=== PATIENT | female | born 1975 | race Hispanic/Latino ===

== ENCOUNTER → 2022-07-04 | Emergency (ER) | payer SELFPAY ==
[~2022-07-04] VITALS: Ht 167.6 cm; Wt 62.6 kg
[~2022-07-04] MED LIST: ASPIRIN 81 MG CHEW TAB PO ONE; BUPIVACAINE 0.25% 30ML SDV ONE; DICYCLOMINE HCL20 MG PO; Morphine 4mg INJECTION 4 MG/ML INJ IV ONE; ONDANSETRON HCL INJ 2MG/ML 2ML 2 MG/ML VIAL IV STA; ONDANSETRON ODT4 MG PO; PANTOPRAZOLE SO40 MG PO; SODIUM CHLORIDE 0.9% 1000ML 1,000 ML IV ONE; SUGAMMADEX SODIUM 200 MG/2 ML VIAL IV ONE
[2022-07-04 18:54] LABS: BASOPHILS # (AUTO) 0.1 (0.0-0.1); BASOPHILS % 0.5 % (0.0-1.0); EOSINOPHILS # (AUTO) 0.2 (0.0-0.4); EOSINOPHILS % 1.2 % (0.0-6.0); HEMOGLOBIN 13.4 g/dL (12.0-16.0); LYMPHOCYTES # (AUTO) 3.2 (1.0-3.2); LYMPHOCYTES % 19.3 % (18.0-39.1); MEAN CORPUSCULAR HEMOGLOBIN 29.1 pg (28-32); MEAN CORPUSCULAR HGB CONC 33.5 g/dL (31-35); MEAN CORPUSCULAR VOLUME 86.8 fL (81-99); MONOCYTES # (AUTO) 1.1 (0.2-0.8); MONOCYTES % 6.6 % (4.4-11.3); NEUTROPHILS # (AUTO) 11.8 (2.1-6.9); NEUTROPHILS % 71.9 % (38.7-80.0); PLATELET COUNT 373 x10e3/uL (140-360); RED BLOOD COUNT 4.61 x10e6/uL (3.6-5.1); RED CELL DISTRIBUTION WIDTH 12.7 % (11.7-14.4)
[2022-07-04 19:14] LABS: ALANINE AMINOTRANSFERASE 18 IU/L (0-55); ALBUMIN 4.1 g/dL (3.5-5.0); ALKALINE PHOSPHATASE 106 IU/L (40-150); ANION GAP 16.5 mmol/L (8-16); BLOOD UREA NITROGEN 10 mg/dL (7-26); BUN/CREATININE RATIO 15 (6-25); CALCIUM 9.6 mg/dL (8.4-10.2); CARBON DIOXIDE 24 mmol/L (22-29); CHLORIDE 103 mmol/L (98-107); CREATINE KINASE 44 IU/L (29-168); CREATININE, SERUM 0.67 mg/dL (0.57-1.11); GLUCOSE 103 mg/dL (74-118); POTASSIUM 3.5 mmol/L (3.5-5.1); SODIUM 140 mmol/L (136-145)
[2022-07-04 21:15] VITALS: O2SAT 99
== END | disposition home or self-care (01) ==
LOC: ER 17:47
DX: R50.9 Fever, unspecified (principal); K80.20 Calculus of gallbladder without cholecystitis without obstruction; R10.10 Upper abdominal pain, unspecified; K76.0 Fatty (change of) liver, not elsewhere classified; R94.31 Abnormal electrocardiogram [ECG] [EKG]
CPT/HCPCS: 36415; 76705; 80053; 82550; 82553; 83605; 83690; 84484; 85025; 87040; 93005; 99282; C9113; J2270; J2405; J7030

== ENCOUNTER 2022-07-06 01:19 | Inpatient (IN) | payer SELFPAY ==
[~2022-07-06] VITALS: Ht 167.6 cm; Wt 62.6 kg
[~2022-07-06 01:19] MED LIST changes: -ASPIRIN 81 MG CHEW TAB PO ONE; -BUPIVACAINE 0.25% 30ML SDV ONE; -Morphine 4mg INJECTION 4 MG/ML INJ IV ONE; -ONDANSETRON HCL INJ 2MG/ML 2ML 2 MG/ML VIAL IV STA; -SODIUM CHLORIDE 0.9% 1000ML 1,000 ML IV ONE; -SUGAMMADEX SODIUM 200 MG/2 ML VIAL IV ONE
[2022-07-06 02:38] LABS: BASOPHILS # (AUTO) 0.1 (0.0-0.1); BASOPHILS % 0.4 % (0.0-1.0); EOSINOPHILS # (AUTO) 0.2 (0.0-0.4); EOSINOPHILS % 1.1 % (0.0-6.0); HEMATOCRIT 38.8 % (34.2-44.1); LYMPHOCYTES # (AUTO) 2.5 (1.0-3.2); LYMPHOCYTES % 16.8 % (18.0-39.1); MEAN CORPUSCULAR HGB CONC 33.5 g/dL (31-35); MEAN CORPUSCULAR VOLUME 86.6 fL (81-99); NEUTROPHILS # (AUTO) 10.9 (2.1-6.9); NEUTROPHILS % 73.9 % (38.7-80.0); PLATELET COUNT 369 x10e3/uL (140-360); RED BLOOD COUNT 4.48 x10e6/uL (3.6-5.1); RED CELL DISTRIBUTION WIDTH 12.7 % (11.7-14.4)
[2022-07-06] MEDS ORDERED: KETOROLAC TROMETHAMINE 30 MG/ML VIAL IV STA (02:38)
[2022-07-06] MEDS ORDERED: ONDANSETRON HCL INJ 2MG/ML 2ML 2 MG/ML VIAL IV STA (02:38)
[2022-07-06] MEDS ORDERED: DICYCLOMINE HCL 20 MG/2 ML VIAL IM ONE (02:45)
[2022-07-06 02:56] LABS: ALBUMIN 3.8 g/dL (3.5-5.0); ANION GAP 12.5 mmol/L (8-16); CALCIUM 9.7 mg/dL (8.4-10.2); CREATININE, SERUM 0.69 mg/dL (0.57-1.11); POTASSIUM 3.5 mmol/L (3.5-5.1)
[2022-07-06] MEDS: SODIUM CHLORIDE 0.9% 1000ML 1,000 ML IV SCH ×3 (03:51→20:20)
[2022-07-06 08:01] VITALS: BP 131/73; PULSE 62; RESP 17; TEMP 98.8; O2SAT 98
[2022-07-06 08:29] VITALS: BP 131/73; PULSE 62; RESP 17; TEMP 98; O2SAT 99
[2022-07-06] MEDS: ONDANSETRON HCL INJ 2MG/ML 2ML 2 MG/ML VIAL IV PRN ×3 (10:40→20:20)
[2022-07-06] MEDS: Morphine 4mg INJECTION 4 MG/ML INJ IV PRN ×2 (10:40→15:22)
[2022-07-06 13:05] VITALS: BP 116/68; PULSE 63; RESP 18; TEMP 98; O2SAT 96
[2022-07-06 16:42] VITALS: BP 119/72; PULSE 66; RESP 17; TEMP 97.7; O2SAT 99
[2022-07-06 20:03] VITALS: BP 118/64; PULSE 64; RESP 18; TEMP 97.9; O2SAT 97
[2022-07-06 20:10] VITALS: BP 118/64; PULSE 64; RESP 17; TEMP 97.9; O2SAT 99
[2022-07-06] MEDS ORDERED: METRONIDAZOLE 750MG/NS 150ML 150 ML IV STA (23:28)
[2022-07-06] MEDS ORDERED: LEVOFLOXACIN 500MG/D5W 100ML 100 ML IV ONE (23:45)
[2022-07-07] VITALS (7 sets, daily range): BP systolic 111–139; BP diastolic 65–80; PULSE 70–83; RESP 14–18; TEMP 98.2–99; O2SAT 96–100
[2022-07-07] MEDS ORDERED: METRONIDAZOLE 500MG/NS 100ML 150 ML IV ONE
[2022-07-07 04:52] LABS: BASOPHILS # (AUTO) 0.1 (0.0-0.1); BASOPHILS % 0.7 % (0.0-1.0); EOSINOPHILS # (AUTO) 0.2 (0.0-0.4); EOSINOPHILS % 2.4 % (0.0-6.0); HEMATOCRIT 33.9 % (34.2-44.1); HEMOGLOBIN 11.4 g/dL (12.0-16.0); LYMPHOCYTES # (AUTO) 2.2 (1.0-3.2); LYMPHOCYTES % 22.9 % (18.0-39.1); MEAN CORPUSCULAR HGB CONC 33.6 g/dL (31-35); MEAN CORPUSCULAR VOLUME 86.3 fL (81-99); MONOCYTES # (AUTO) 0.7 (0.2-0.8); MONOCYTES % 7.3 % (4.4-11.3); NEUTROPHILS # (AUTO) 6.2 (2.1-6.9); PLATELET COUNT 311 x10e3/uL (140-360); RED BLOOD COUNT 3.93 x10e6/uL (3.6-5.1); RED CELL DISTRIBUTION WIDTH 12.7 % (11.7-14.4)
[2022-07-07 05:18] LABS: ANION GAP 11.7 mmol/L (8-16); CALCIUM 8.5 mg/dL (8.4-10.2); CREATININE, SERUM 0.64 mg/dL (0.57-1.11); POTASSIUM 3.7 mmol/L (3.5-5.1)
[2022-07-07] MEDS: METRONIDAZOLE 500MG/NS 100ML 100 ML IV SCH ×4 (06:26→23:50)
[2022-07-07] MEDS: SODIUM CHLORIDE 0.9% 1000ML 1,000 ML IV SCH ×3 (06:26→17:34)
[2022-07-07] MEDS: ONDANSETRON HCL INJ 2MG/ML 2ML 2 MG/ML VIAL IV PRN ×2 (08:42→17:18)
[2022-07-07] MEDS: LEVOFLOXACIN 500MG/D5W 100ML 100 ML IV SCH (08:42)
[2022-07-07] MEDS: Morphine 4mg INJECTION 4 MG/ML INJ IV PRN (11:07)
[2022-07-07] MEDS ORDERED: ROCURONIUM BROMIDE 10 MG/ML 5ML VIAL IV ONE (12:48)
[2022-07-07] MEDS ORDERED: LIDOCAINE HCL 2% LOCAL INJ 5 ML SDV VIAL INJ ONE (12:48)
[2022-07-07] MEDS ORDERED: SEVOFLURANE INHAL SOLN 250 ML PEN BTL ONE (12:48)
[2022-07-07] MEDS ORDERED: POVIDONE IODINE 0.05% 0.05 % ML PO ONE (12:48)
[2022-07-07] MEDS ORDERED: DEXAMETHASONE SOD PHOS INJ 4 MG/ML SDV ONE (12:48)
[2022-07-07] MEDS ORDERED: PROPOFOL IV EMULSION 10 MG/ML 20 ML VIAL ONE (12:48)
[2022-07-07] MEDS ORDERED: ONDANSETRON HCL INJ 2MG/ML 2ML 2 MG/ML VIAL ONE (12:48)
[2022-07-07] MEDS ORDERED: MIDAZOLAM HCL 2 MG/2 ML VIAL ONE (13:05)
[2022-07-07] MEDS ORDERED: FENTANYL CITRATE/PF 100MCG/2 ML INJ ONE (13:05)
[2022-07-07] MEDS ORDERED: IOPAMIDOL 610MG/1ML 300 MG/ML VIAL IV ONE (14:24)
[2022-07-07] MEDS ORDERED: INDOMETHACIN 50 MG SUPP.RECT RC ONE (14:24)
[2022-07-07] MEDS ORDERED: SUGAMMADEX SODIUM 200 MG/2 ML VIAL IV ONE (16:25)
[2022-07-07] MEDS ORDERED: METOCLOPRAMIDE HCL 10 MG/2ML VIAL IV ONE (18:40)
[2022-07-08] VITALS (8 sets, daily range): BP systolic 110–133; BP diastolic 64–76; PULSE 66–75; RESP 16–18; TEMP 98.1–99; O2SAT 95–100
[2022-07-08] MEDS: METRONIDAZOLE 500MG/NS 100ML 100 ML IV SCH ×2 (05:00→11:31)
[2022-07-08] MEDS: SODIUM CHLORIDE 0.9% 1000ML 1,000 ML IV SCH ×2 (05:03→11:31)
[2022-07-08 05:20] LABS: BASOPHILS # (AUTO) 0.1 (0.0-0.1); BASOPHILS % 0.4 % (0.0-1.0); EOSINOPHILS % 0.2 % (0.0-6.0); HEMATOCRIT 32.2 % (34.2-44.1); HEMOGLOBIN 10.9 g/dL (12.0-16.0); LYMPHOCYTES # (AUTO) 2.4 (1.0-3.2); LYMPHOCYTES % 18.2 % (18.0-39.1); MEAN CORPUSCULAR HEMOGLOBIN 28.8 pg (28-32); MEAN CORPUSCULAR HGB CONC 33.9 g/dL (31-35); MONOCYTES # (AUTO) 0.5 (0.2-0.8); MONOCYTES % 3.9 % (4.4-11.3); NEUTROPHILS # (AUTO) 10.1 (2.1-6.9); NEUTROPHILS % 76.5 % (38.7-80.0); PLATELET COUNT 312 x10e3/uL (140-360); RED BLOOD COUNT 3.79 x10e6/uL (3.6-5.1); RED CELL DISTRIBUTION WIDTH 12.2 % (11.7-14.4)
[2022-07-08 06:05] LABS: ALBUMIN 2.8 g/dL (3.5-5.0); ANION GAP 15.7 mmol/L (8-16); CALCIUM 8.6 mg/dL (8.4-10.2); CREATININE, SERUM 0.59 mg/dL (0.57-1.11); POTASSIUM 3.7 mmol/L (3.5-5.1)
[2022-07-08] MEDS: LEVOFLOXACIN 500MG/D5W 100ML 100 ML IV SCH (08:32)
[2022-07-08] MEDS ORDERED: Morphine 10mg syringe 10 MG/ML INJ ONE (13:35)
[2022-07-08] MEDS ORDERED: FENTANYL CITRATE/PF 100MCG/2 ML INJ ONE (13:35)
[2022-07-09] VITALS: BP 110/60; PULSE 77; RESP 17; TEMP 98.2; O2SAT 96
[2022-07-09] MEDS: SODIUM CHLORIDE 0.9% 1000ML 1,000 ML IV SCH ×4 (00:06→23:31)
[2022-07-09] MEDS: METRONIDAZOLE 500MG/NS 100ML 100 ML IV SCH ×6 (00:06→23:31)
[2022-07-09 04:00] VITALS: BP 135/79; PULSE 75; RESP 20; TEMP 97.6; O2SAT 98
[2022-07-09 05:45] LABS: ANION GAP 13.7 mmol/L (8-16); CALCIUM 8.3 mg/dL (8.4-10.2); CREATININE, SERUM 0.59 mg/dL (0.57-1.11); POTASSIUM 3.7 mmol/L (3.5-5.1)
[2022-07-09 08:00] VITALS: BP 135/79; PULSE 75; RESP 20; TEMP 97.6; O2SAT 98
[2022-07-09 08:48] VITALS: BP 123/62; PULSE 78; RESP 18; TEMP 98.3; O2SAT 100
[2022-07-09] MEDS: LEVOFLOXACIN 500MG/D5W 100ML 100 ML IV SCH (09:45)
[2022-07-09] MEDS: ONDANSETRON HCL INJ 2MG/ML 2ML 2 MG/ML VIAL IV PRN (09:50)
[2022-07-09] MEDS: Morphine 4mg INJECTION 4 MG/ML INJ IV PRN (09:51)
[2022-07-09 12:07] VITALS: BP 120/74; PULSE 76; RESP 18; TEMP 98.6; O2SAT 98
[2022-07-09 16:38] VITALS: BP 120/72; PULSE 71; RESP 18; TEMP 98; O2SAT 99
[2022-07-10] MEDS: SODIUM CHLORIDE 0.9% 1000ML 1,000 ML IV SCH ×2 (04:09→12:21)
[2022-07-10] MEDS: METRONIDAZOLE 500MG/NS 100ML 100 ML IV SCH ×2 (06:27→12:22)
[2022-07-10 07:54] VITALS: BP 129/69; PULSE 71; RESP 19; TEMP 98.7; O2SAT 98
[2022-07-10 08:19] VITALS: BP 129/69; PULSE 71; RESP 19; TEMP 98.7; O2SAT 98
[2022-07-10] MEDS: LEVOFLOXACIN 500MG/D5W 100ML 100 ML IV SCH (10:19)
[2022-07-10 11:36] VITALS: BP 125/78; PULSE 80; RESP 22; TEMP 99.2; O2SAT 99
== END 2022-07-10 16:11 | disposition home or self-care (01) | DRG 419 ==
LOC: ER 01:22 → ERHOLD 03:18 → MED/SURG 07:47
PROVIDERS: ADMIT Family Medicine; ATTEND Family Medicine
PROC: 0FC98ZZ Extirpation of Matter from Common Bile Duct, Via Natural or Artificial Opening Endoscopic (ICD-10-PCS; principal; 2022-07-07 15:57)
PROC: 0FT44ZZ Resection of Gallbladder, Percutaneous Endoscopic Approach (ICD-10-PCS; 2022-07-08)
DX: K80.64 Calculus of gallbladder and bile duct with chronic cholecystitis without obstruction (principal)
CPT/HCPCS: 0223U; 36415; 43260; 74181; 80053; 83690; 84702; 85025; 88304; 99284; J1100; J1885; J1956; J2001; J2250; J2270; J2405; J2543; J2765; J7030